=== PATIENT | male | born 1975 | race Two or more races ===

== ENCOUNTER 2022-02-04 22:46 | Emergency (ER) | payer SELFPAY ==
[~2022-02-04] VITALS: Ht 165.1 cm; Wt 68.0 kg
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
[2022-02-05 01:52] VITALS: BP 125/79
== END 2022-02-05 04:15 | disposition home or self-care (01) ==
LOC: ER 22:46
DX: F10.229 Alcohol dependence with intoxication, unspecified (principal); Y90.1 Blood alcohol level of 20-39 mg/100 ml; F17.200 Nicotine dependence, unspecified, uncomplicated
CPT/HCPCS: 36415; 99285; G0480

== ENCOUNTER 2022-02-06 18:17 | Emergency (ER) | payer SELFPAY ==
[~2022-02-06] VITALS: Ht 167.6 cm; Wt 84.1 kg
[2022-02-06 18:40] VITALS: BP 119/80
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
== END 2022-02-06 19:20 | disposition home or self-care (01) ==
LOC: ER 18:17
DX: S00.83XA Contusion of other part of head, initial encounter (principal); M54.50 Low back pain, unspecified; F10.229 Alcohol dependence with intoxication, unspecified; Y90.9 Presence of alcohol in blood, level not specified; Z59.00 Homelessness unspecified; F17.200 Nicotine dependence, unspecified, uncomplicated; Y08.89XA Assault by other specified means, initial encounter; Y93.89 Activity, other specified; Y92.89 Other specified places as the place of occurrence of the external cause; Y99.8 Other external cause status
CPT/HCPCS: 99281